=== PATIENT | female | born 1990 | race Caucasian/White ===

== ENCOUNTER → 2021-01-25 | Outpatient (CLI) | payer OTHER | LOC: HEART 5 15:30 | DX: I34.0 Nonrheumatic mitral (valve) insufficiency (principal); R06.02 Shortness of breath | CPT/HCPCS: 93306 ==

== ENCOUNTER 2021-04-16 21:59 | Emergency (ER) | payer OTHER ==
[2021-04-16] MEDS ORDERED: PHENERGAN 25 MG25 M1 PO (22:43)
[2021-04-16 22:56] LABS: RED BLOOD COUNT 4.59 M/UL (4.00-5.10); WHITE BLOOD COUNT 13.5 K/UL (4.5-11.0)
[2021-04-16 23:34] LABS: BUN/CREATININE RATIO 14 (0-10)
== END 2021-04-17 00:58 | disposition home or self-care (01) ==
LOC: ER1 21:59
PROVIDERS: Physician Assistant
DX: O21.0 Mild hyperemesis gravidarum (principal); O99.281 Endocrine, nutritional and metabolic diseases complicating pregnancy, first trimester; E86.0 Dehydration; O16.1 Unspecified maternal hypertension, first trimester; Z3A.11 11 weeks gestation of pregnancy; Z79.899 Other long term (current) drug therapy
CPT/HCPCS: 80048; 81001; 85025; 87086; 99284

== ENCOUNTER 2021-06-18 23:58 | Emergency (ER) | payer OTHER ==
[~2021-06-18 23:58] MED LIST: PHENERGAN 25 MG25 M1 PO
[2021-06-19 02:25] LABS: RED BLOOD COUNT 4.14 M/UL (4.00-5.10); WHITE BLOOD COUNT 17.1 K/UL (4.5-11.0)
[2021-06-19 02:44] LABS: BUN/CREATININE RATIO 17 (0-10)
[2021-06-19] MEDS ORDERED: OMNICEF 300 MG300 MG PO (03:20)
== END 2021-06-19 03:30 | disposition home or self-care (01) ==
LOC: ER1 23:58
PROVIDERS: Emergency Medicine
DX: O23.42 Unspecified infection of urinary tract in pregnancy, second trimester (principal); O16.2 Unspecified maternal hypertension, second trimester; Z3A.19 19 weeks gestation of pregnancy
CPT/HCPCS: 80053; 81001; 84702; 85025; 86900; 86901; 99284

== ENCOUNTER 2021-07-16 13:12 | Outpatient (CLI) | payer OTHER ==
[~2021-07-16 13:12] MED LIST changes: +OMNICEF 300 MG300 MG PO
== END 2021-07-16 17:06 | disposition home or self-care (01) ==
LOC: GENOP 13:12
PROVIDERS: Obstetrics & Gynecology
DX: O26.852 Spotting complicating pregnancy, second trimester (principal); O16.2 Unspecified maternal hypertension, second trimester; O36.8120 Decreased fetal movements, second trimester, not applicable or unspecified; Z3A.23 23 weeks gestation of pregnancy
CPT/HCPCS: 80307; 81001

== ENCOUNTER 2021-08-26 11:53 | Outpatient (CLI) | payer OTHER | END 2021-08-26 14:06 | disposition home or self-care (01) | LOC: GENOP 11:53 | DX: O36.8130 Decreased fetal movements, third trimester, not applicable or unspecified (principal); O16.3 Unspecified maternal hypertension, third trimester; O99.283 Endocrine, nutritional and metabolic diseases complicating pregnancy, third trimester; E04.9 Nontoxic goiter, unspecified; O99.343 Other mental disorders complicating pregnancy, third trimester; F32.A Depression, unspecified; O99.413 Diseases of the circulatory system complicating pregnancy, third trimester; I05.1 Rheumatic mitral insufficiency; Z3A.29 29 weeks gestation of pregnancy | CPT/HCPCS: 59025 ==

== ENCOUNTER 2021-09-22 17:10 | Outpatient (CLI) | payer OTHER ==
[2021-09-22 19:09] LABS: HEMOGLOBIN 12.5 gm/dl (12.3-15.3); RED BLOOD COUNT 4.65 M/UL (4.00-5.10); WHITE BLOOD COUNT 16.7 K/UL (4.5-11.0)
[2021-09-22 19:27] LABS: BUN/CREATININE RATIO 16 (0-10)
== END 2021-09-22 21:11 | disposition home or self-care (01) ==
LOC: GENOP 17:10
PROVIDERS: Obstetrics & Gynecology
DX: O10.913 Unspecified pre-existing hypertension complicating pregnancy, third trimester (principal); O99.283 Endocrine, nutritional and metabolic diseases complicating pregnancy, third trimester; O99.343 Other mental disorders complicating pregnancy, third trimester; O99.413 Diseases of the circulatory system complicating pregnancy, third trimester; E04.9 Nontoxic goiter, unspecified; F32.A Depression, unspecified; F41.0 Panic disorder [episodic paroxysmal anxiety]; I05.1 Rheumatic mitral insufficiency; Z3A.33 33 weeks gestation of pregnancy
CPT/HCPCS: 36415; 80053; 81001; 82570; 83615; 84156; 84550; 85025; G0463

== ENCOUNTER 2021-10-17 16:26 | Inpatient (IN) | payer OTHER ==
[~2021-10-17] VITALS: Ht 160 cm; Wt 90.3 kg
[2021-10-17 16:57] LABS: HEMOGLOBIN 12.1 gm/dl (12.3-15.3); RED BLOOD COUNT 4.4 M/UL (4.00-5.10); WHITE BLOOD COUNT 14.4 K/UL (4.5-11.0)
[2021-10-17] MEDS ORDERED: LABETALOL HCL300 MG PO (17:00)
[2021-10-17] MEDS ORDERED: LABETALOL HCL200 MG PO (17:01)
[2021-10-17] MEDS ORDERED: PRENATAL VITAM1 EAC3 PO (17:01)
[2021-10-19] MEDS ORDERED: IBUPROFEN600 MG PO (10:22)
[2021-10-19] MEDS ORDERED: DOCUSATE SODIU250 MG PO (10:22)
[2021-10-19] MEDS ORDERED: FEROSUL325 MG PO (10:22)
[2021-10-20 07:08] LABS: HEMOGLOBIN 10.2 gm/dl (12.3-15.3)
== END 2021-10-21 17:25 | disposition home or self-care (01) | DRG 807 ==
LOC: GENOP 16:26 → OB 16:47
PROVIDERS: Obstetrics & Gynecology; ADMIT Obstetrics & Gynecology
PROC: 10907ZC Drainage of Amniotic Fluid, Therapeutic from Products of Conception, Via Natural or Artificial Opening (ICD-10-PCS; principal; 2021-10-19)
PROC: 10E0XZZ Delivery of Products of Conception, External Approach (ICD-10-PCS; 2021-10-19)
PROC: 0KQM0ZZ Repair Perineum Muscle, Open Approach (ICD-10-PCS; 2021-10-19)
PROC: 3E033VJ Introduction of Other Hormone into Peripheral Vein, Percutaneous Approach (ICD-10-PCS; 2021-10-19)
PROC: 10H07YZ Insertion of Other Device into Products of Conception, Via Natural or Artificial Opening (ICD-10-PCS; 2021-10-19)
PROC: 4A1H7CZ Monitoring of Products of Conception, Cardiac Rate, Via Natural or Artificial Opening (ICD-10-PCS; 2021-10-19)
PROC: 10H073Z Insertion of Monitoring Electrode into Products of Conception, Via Natural or Artificial Opening (ICD-10-PCS; 2021-10-19)
DX: O10.92 Unspecified pre-existing hypertension complicating childbirth (principal); Z37.0 Single live birth; Z20.822 Contact with and (suspected) exposure to COVID-19; O99.344 Other mental disorders complicating childbirth; F41.0 Panic disorder [episodic paroxysmal anxiety]; F32.A Depression, unspecified; O99.892 Other specified diseases and conditions complicating childbirth; I34.0 Nonrheumatic mitral (valve) insufficiency; O99.284 Endocrine, nutritional and metabolic diseases complicating childbirth; E04.9 Nontoxic goiter, unspecified; O70.1 Second degree perineal laceration during delivery; Z3A.37 37 weeks gestation of pregnancy; Z82.5 Family history of asthma and other chronic lower respiratory diseases; Z82.0 Family history of epilepsy and other diseases of the nervous system
CPT/HCPCS: 36415; 81001; 82800; 85014; 85018; 85025; 90471; 90472; 90707; 90715; J2405; J2590; J3010; J7120

== ENCOUNTER → 2021-11-17 | Outpatient (CLI) | payer OTHER ==
[~2021-11-17] MED LIST changes: +DOCUSATE SODIU250 MG PO; +FEROSUL325 MG PO; +IBUPROFEN600 MG PO; +LABETALOL HCL200 MG PO; +LABETALOL HCL300 MG PO; +PRENATAL VITAM1 EAC3 PO
== END ==
LOC: EXRD 11-16 11:30
DX: E04.9 Nontoxic goiter, unspecified (principal); R22.0 Localized swelling, mass and lump, head; R94.6 Abnormal results of thyroid function studies
CPT/HCPCS: 76536